=== PATIENT | male | born 1965 | race African-American/Black ===

== ENCOUNTER → 2019-11-15 | Outpatient (CLI) | payer OTHER ==
[2013-12-25 13:08] VITALS: BP 156/82
--- NOTE | 2019-11-15 15:17 | KCIC ---
3 views left foot without comparison for left foot pain, pain and numbness in the ball of the foot for several months. FINDINGS: There is no fracture, dislocation, or acute osseous abnormality identified. There are degenerative changes about the first metatarsophalangeal joint with small subchondral cysts and osteophytes. Remaining joints and soft tissues are grossly unremarkable. IMPRESSION: 1. No acute osseous abnormality. 2. 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 Electronically signed by: Raul Cheng MD (11/15/2019 3:14 PM) [id number]
== END | disposition home or self-care (01) ==
LOC: KCIC 10:42
PROVIDERS: ATTEND Family Medicine
DX: M19.072 Primary osteoarthritis, left ankle and foot (principal)
CPT/HCPCS: 73630